=== PATIENT | female | born 1940 | race Caucasian/White ===

== ENCOUNTER 2016-12-18 14:57 | Emergency (ER) | payer MEDICARE, OTHER ==
--- NOTE | 2016-12-30 14:39 | ER ---
ADMIT: 12/18/2016 RM/LOC: ER [facility] MR#: [id number] [id number] [facility] [address] [place] [id number] XAVIER ALONZO [address] [place] [id number] [facility] Room Report SEX: F AGE: 76 : 1940 DATE: 12/18/2016 ADDENDUM: CHIEF COMPLAINT: Left shoulder and jaw pain. HISTORY OF PRESENT ILLNESS: This 76-year-old female initially went to [facility] and presented with shoulder and jaw pain. They sent her over here worried about any kind of cardiac event. When questioning her, she said she woke up with the pain. Her pain is actually reproducible pain. It is painful when she moves her shoulder after she did any heavy lifting yesterday. She said she did work a little bit outside but does not remember anything specific that she did. Does also have a history of rheumatoid arthritis that does also affect her shoulders. PAST MEDICAL HISTORY: Hypertension, rheumatoid arthritis, hypercholesteremia, COPD, history of an aneurysm. PAST SURGICAL HISTORY: She has had a hysterectomy, cholecystectomy, bilateral total knee arthroplasty. MEDICATIONS: Please see nurse's note. ALLERGIES: TO PREDNISONE, NEOSPORIN, AND HYDROCODONE. SOCIAL HISTORY: Denies any tobacco, drug, or alcohol use. FAMILY HISTORY: Per old records. Mother had cancer. Father had a stroke. Negative history for coronary artery disease. REVIEW OF SYSTEMS: CONSTITUTIONAL: Denies any fevers, chills, sweats. CARDIOVASCULAR AND RESPIRATORY: She actually denies any chest pain or any shortness of breath. GASTROINTESTINAL AND GENITOURINARY: Denies any nausea, vomiting, diarrhea, or abdominal pain. MUSCULOSKELETAL: She does complain about left shoulder extending into the neck, more pain with rotation of the neck. More pain with rotation of the shoulder. PHYSICAL EXAMINATION: VITAL SIGNS: Blood pressure is 153/83, pulse is 82, respirations 14, temperature is 98.2, tympanic, saturation of oxygen is 98% on room air. GENERAL APPEARANCE: She is in no acute distress and alert. HEENT: Pharynx is moist. No tonsillar swelling or exudate. NECK: When palpating it, she is slightly tender to her left lateral aspect on the sternocleidomastoid muscle. Pain with rotation of the neck to the right. HEART: Regular rate and rhythm. LUNGS: CTA bilateral. ABDOMEN: Soft, nontender. No distention. ADMIT: 12/18/2016 RM/LOC: ER [facility] MR#: [id number] [address] [id number] [place] [address] *[facility] Emergency Room Report SEX: F AGE: 76 : 1940 SKIN: Normal color, warm and dry. MUSCULOSKELETAL: She is tender to palpation in the lateral aspect of the left shoulder, pain with external rotation and abduction. COURSE IN THE EMERGENCY ROOM: An EKG, CBC, CMP, and cardiac enzymes were done. Her cardiac enzymes were completely normal. EKG showed sinus rhythm at a rate of 82. No ST elevation or depression. CBC and CMP are essentially negative. I did speak with Dr. Seymour regarding this patient. Since her symptoms have been over 6 hours and she has a negative troponin, he agrees that she is okay to go home at this time. I told her this could be more rheumatological in the cause or could be that she pulled her shoulder yesterday. She feels comfortable going home. I did tell her to take it easy this week and to return to the ER if she has any shortness of breath or chest pain. Otherwise to follow up with Dr. Seymour next week to possibly have a stress test done. CLINICAL IMPRESSION: 1. Left shoulder strain. 2. Rheumatoid arthritis. RONI Dejesus / Jimmie Casillas MD / modl JOB #: [id number] CC: Jimmie Casillas MD, Attending Physician Rakesh Seymour MD, Family Physician
== END 2016-12-18 17:15 | disposition home or self-care (01) ==
LOC: ER 14:57
DX: S46.912A Strain of unspecified muscle, fascia and tendon at shoulder and upper arm level, left arm, initial encounter (principal); M06.9 Rheumatoid arthritis, unspecified; I10 Essential (primary) hypertension; E78.00 Pure hypercholesterolemia, unspecified; J44.9 Chronic obstructive pulmonary disease, unspecified; Z90.710 Acquired absence of both cervix and uterus; Z90.49 Acquired absence of other specified parts of digestive tract; Z88.6 Allergy status to analgesic agent; Z88.1 Allergy status to other antibiotic agents; Z88.8 Allergy status to other drugs, medicaments and biological substances; Z79.899 Other long term (current) drug therapy; Z79.52 Long term (current) use of systemic steroids; X50.0XXA Overexertion from strenuous movement or load, initial encounter